=== PATIENT | female | born 1970 | race Caucasian/White ===

== ENCOUNTER → 2020-07-05 09:36 | Outpatient (CLI) | payer BC, SELFPAY ==
--- NOTE | ~2020-07-05 | MR_ITS ---
EXAMINATION: MR cervical spine wo con DATE: 07/05/2020 10:28 INDICATION: Neck pain. Anesthesia of skin. TECHNIQUE: Magnetic resonance imaging (MRI) of the cervical spine was performed without intravenous c ontrast. Sequences included sagittal T2-weighted FSE, sagittal STIR FSE, sagittal T1-weighted FSE, ax ial MERGE, and axial T2-weighted FSE. COMPARISON: None FINDINGS: Bone alignment is normal. Vertebral body heights are normal. There is mildly decreased disc height at C5-C6 and C6-C7. The spinal cord signal intensity is normal. The following disc levels are specifically discussed: C2-C3: The disc does not extend beyond the endplate margin. There is no uncovertebral joint osteoarth ritis. There is mild bilateral facet joint osteoarthritis. There is mild left neural foraminal stenos is. There is no central canal stenosis. C3-C4: The disc is bulging. There is moderate bilateral uncovertebral joint osteoarthritis. There is severe bilateral facet joint osteoarthritis. There is mild bilateral neural foraminal stenosis. There is no central canal stenosis. C4-C5: The disc does not extend beyond the endplate margin. There is mild bilateral uncovertebral marcin nt osteoarthritis. There is severe right and moderate left facet joint osteoarthritis. There is mild bilateral neural foraminal stenosis. There is no central canal stenosis. C5-C6: The disc is bulging. There is severe bilateral uncovertebral joint osteoarthritis. There is mo derate right and mild left facet joint osteoarthritis. There is moderate bilateral neural foraminal s tenosis. There is mild central canal stenosis with ventral indentation of the spinal cord. C6-C7: The disc is bulging. There is moderate bilateral uncovertebral joint osteoarthritis. There is mild bilateral facet joint osteoarthritis. There is mild bilateral neural foraminal stenosis. There i s mild central canal stenosis. C7-T1: The disc does not extend beyond the endplate margin. There is no uncovertebral joint osteoarth ritis. There is severe right and mild left facet joint osteoarthritis. There is mild bilateral neural foraminal stenosis. There is no central canal stenosis. IMPRESSION: 1. Moderate cervical spondylosis. Reviewed, dictated and finalized at location A.
== END ==
PROVIDERS: PCP Nurse Practitioner Family; Visit Provider Nurse Practitioner Family
DX: R20.0 Anesthesia of skin (principal); M47.892 Other spondylosis, cervical region
CPT/HCPCS: 72141

== ENCOUNTER → 2022-02-19 13:20 | Outpatient (CLI) | payer BC, SELFPAY ==
--- NOTE | ~2022-02-19 | MM_ITS ---
EXAMINATION: MM screening [facility] BI w cesar HISTORY: Screening mammogram TECHNIQUE: Craniocaudal and mediolateral oblique 3-D tomosynthesis images were obtained and synthetic 2-D images were generated. CAD analysis was submitted and interpreted. COMPARISON: No prior mammogram is available for comparison at this institution. BREAST PARENCHYMAL COMPOSITION: There are scattered areas of fibroglandular density. FINDINGS: RIGHT BREAST: There is a mass in the posterior third of the outer breast. LEFT BREAST: Masses are present in the middle and posterior thirds of the inner breast. IMPRESSION: 1. Bilateral breast masses which may represent the patient's baseline however no comparison is curren tly available. 2. Comparison with prior mammograms is necessary. BI-RADS Category 0: Incomplete: Needs comparison with prior mammograms. Reviewed, dictated and finalized at location A. IMPRESSION: 1. Bilateral breast masses which may represent the patient's baseline however n o comparison is currently available. 2. Comparison with prior mammograms is necessary. BI-RADS Category 0: Incomplete: Needs comparison with prior mammograms.
== END ==
PROVIDERS: PCP Nurse Practitioner Family; Visit Provider Nurse Practitioner Family
DX: Z12.31 Encounter for screening mammogram for malignant neoplasm of breast (principal); R92.8 Other abnormal and inconclusive findings on diagnostic imaging of breast
CPT/HCPCS: 77063; 77067

== ENCOUNTER → 2022-03-20 08:15 | Outpatient (CLI) | payer BC, SELFPAY ==
--- NOTE | ~2022-03-20 | MMUS_ITS ---
EXAMINATION: MM diagnostic cindi BI w cesar, US breast BI complete HISTORY: Follow-up breast asymmetries TECHNIQUE: Additional 3-D tomosynthesis images of the breasts were performed and synthetic 2-D images were generated. CAD analysis was submitted and interpreted. High resolution bilateral complete breas t ultrasound was performed. COMPARISON: Comparison to multiple prior studies sequentially, with oldest reviewed study dated 12/27. BREAST PARENCHYMAL COMPOSITION: Breast composed of scattered areas of fibroglandular density FINDINGS: MAMMOGRAPHIC FINDINGS: There are no suspicious masses, calcifications or architectural distortion in the right breast to sug gest malignancy. There is a focal mass at the 9:00 position of the left breast, middle third. ULTRASOUND: Complete bilateral US of all 4 quadrants of the breasts and retroareolar region was reviewed. Right breast: Normal heterogeneous echotexture without focal mass. Left breast: At 9:00, 3.5 cm from the nipple there is a 5 mm cyst. This corresponds to the mammograph ic finding. No suspicious masses. IMPRESSION: 1. No evidence for malignancy in either breast. 2. Routine yearly screening mammogram and regular clinical breast examination are recommended. BI-RADS Category 2: Benign finding(s). Reviewed, dictated and finalized at location A. IMPRESSION: 1. No evidence for malignancy in either breast. 2. Routine yearly screening mammogram and regular clinical breast examination a re recommended. BI-RADS Category 2: Benign finding(s).
== END ==
PROVIDERS: PCP Nurse Practitioner Family; Visit Provider Nurse Practitioner Family
DX: R92.8 Other abnormal and inconclusive findings on diagnostic imaging of breast (principal)
CPT/HCPCS: 76641; 77062; 77066; G0279

== ENCOUNTER → 2023-04-16 13:20 | Outpatient (CLI) | payer BC, SELFPAY ==
--- NOTE | ~2023-04-16 | MM_ITS ---
EXAMINATION: MM screening cindi BI w cesar HISTORY: Screening mammogram TECHNIQUE: Craniocaudal and mediolateral oblique 3-D tomosynthesis images were obtained and synthetic 2-D images were generated. CAD analysis was submitted and interpreted. COMPARISON: 03/20/2022 bilateral diagnostic mammography and bilateral complete breast ultrasound examin ation 02/19/2022, 12/27 2020 bilateral screening mammogram examinations BREAST PARENCHYMAL COMPOSITION: There are scattered areas of fibroglandular density. FINDINGS: There is no evidence of suspicious mass, calcification, or architectural distortion to sugg est malignancy in either breast. There has been no suspicious interval change. IMPRESSION: 1. No mammographic evidence of malignancy. 2. Recommend routine screening mammography in one year. BI-RADS Category 1: Negative Reviewed, dictated and finalized at location A.
== END ==
PROVIDERS: PCP Obstetrics & Gynecology; Visit Provider Obstetrics & Gynecology
DX: Z12.31 Encounter for screening mammogram for malignant neoplasm of breast (principal)
CPT/HCPCS: 77063; 77067

== ENCOUNTER 2024-03-28 15:45 | Emergency (ER) | payer OTHER, BC, SELFPAY ==
--- NOTE | ~2024-03-28 | CT_ITS ---
Noncontrast CT scan of the cervical spine Technique: Multiple contiguous axial [address] images of the cervical spine were obtained and rec onstructed in 2D sagittal and coronal planes on the acquisition scanner. Dose reduction technique was used on this scan by utilizing automated exposure control, adjustment of the mA and/or kV according to patient size. The dose-length product (DLP) was 586.28 mGy-cm. Clinical History: Pain Findings: No fractures or dislocations. There are mild degenerative disc changes in the cervical spi ne. There is scattered facet joint degenerative changes. There is left neural foraminal narrowing at C3-C4 related to facet joint arthropathy. There is probable bilateral mild neural foraminal narrowing at C5-C6. There is probable right neural foraminal narrowing at C6-C7. No prevertebral soft tissue s welling. Impression: No fracture or subluxation of the cervical spine. Degenerative change, as above. Reviewed, dictated and finalized at [facility]. Impression: No fracture or subluxation of the cervical spine. Degenerative change, as above.
--- NOTE | ~2024-03-28 | XR_ITS ---
Lumbosacral Spine: AP and lateral views Clinical History: Pain Findings: The normal lordotic curve is maintained. The vertebral bodies and posterior elements are i ntact. There is moderate degenerative disc narrowing at L5-S1. There is moderate facet arthropathy fr om L3 through S1. The sacroiliac joints are normally outlined. Impression: [id number] degenerative spondylosis of the lower lumbar spine, as above. Reviewed, dictated and finalized at location M. Impression: [id number] degenerative spondylosis of the lower lumbar spine, as above.
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
[2024-03-28 15:49] VITALS: BP 141/80; PULSE 106; RESP 20; TEMP 36.5; O2SAT 99
--- NOTE | 2024-03-28 17:04 | PC.NURSE ---
patient c/o left arm tingling. provider aware and new orders received
[2024-03-28] MEDS: ACETAMINOPHEN 500 MG TABLET 1000 MG PO (17:35)
--- NOTE | 2024-03-28 18:54 | PC.NURSE ---
c-collar removed at this time per ERP
[2024-03-28] MEDS: CYCLOBENZAPRINE HCL 10 MG TABLET PO (19:29)
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
[2024-03-28 22:07] VITALS: PULSE 72; RESP 17; O2SAT 95
== END 2024-03-28 22:10 | disposition home or self-care (01) ==
PROVIDERS: Emergency Provider Physician Assistant; PCP Obstetrics & Gynecology
DX: S39.012A Strain of muscle, fascia and tendon of lower back, initial encounter (principal); S20.211A Contusion of right front wall of thorax, initial encounter; F32.A Depression, unspecified; V43.52XA Car driver injured in collision with other type car in traffic accident, initial encounter
CPT/HCPCS: 71046; 71100; 72100; 72125; 99284; A9270

== ENCOUNTER 2024-09-01 10:09 | Outpatient (CLI) | payer BC, SELFPAY ==
--- NOTE | ~2024-09-01 | XR_ITS ---
[id number] Ordering provider: Gabrielle Chambers, BIOMETRIC FINGERPRINTING TECHNICIAN History: . CERVICALGIA . Comparison: None. FINDINGS: VERTEBRAL BODIES: Normal height and alignment. No visible fracture or subluxation. The dens is intact . DISK SPACES: Narrowing of the disc C5-C6. Multilevel uncovertebral joint osteoarthritic changes. PARASPINOUS SOFT TISSUES: No prevertebral soft tissue swelling. IMPRESSION: No acute osseous abnormality cervical spine. Degenerative disc disease at the level of C5-C6. Reviewed, dictated and finalized at location A. E MAKER
== END 2024-09-01 10:10 | disposition home or self-care (01) ==
LOC: MICIMG 10:10
PROVIDERS: PCP Obstetrics & Gynecology; Visit Provider Nurse Practitioner Family
DX: M50.322 Other cervical disc degeneration at C5-C6 level (principal)
CPT/HCPCS: 72040

== ENCOUNTER 2024-09-21 12:25 | Outpatient (CLI) | payer BC, SELFPAY ==
--- NOTE | ~2024-09-21 | MM_ITS ---
EXAMINATION: MM screening [facility] BI w cesar HISTORY: Screening TECHNIQUE: Craniocaudal and mediolateral oblique 3-D tomosynthesis images were obtained and synthetic 2-D images were generated. CAD analysis was submitted and interpreted. COMPARISON: Comparison to multiple prior studies sequentially, with oldest reviewed study dated 12/27. BREAST PARENCHYMAL COMPOSITION: Not dense: There are scattered areas of fibroglandular density. FINDINGS: Stable low-density mass in the lower inner quadrant of the left breast, previously characte rized as a cyst. There is no evidence of suspicious mass, calcification, or architectural distortion to suggest malignancy in either breast. There has been no suspicious interval change. IMPRESSION: 1. No mammographic evidence of malignancy. 2. Recommend routine screening mammography in one year. BI-RADS Category 2: Benign finding(s). Reviewed, dictated and finalized at location B. LINING BANDER
== END 2024-09-21 12:26 | disposition home or self-care (01) ==
PROVIDERS: PCP Obstetrics & Gynecology; Visit Provider Obstetrics & Gynecology
DX: Z12.31 Encounter for screening mammogram for malignant neoplasm of breast (principal)
CPT/HCPCS: 77063; 77067

== ENCOUNTER 2025-01-25 10:20 | Emergency (ER) | payer BC, SELFPAY ==
--- NOTE | 2025-01-25 10:22 | ED_ITS ---
HPI - Skin/Abscess/Foreign Bdy General Chief complaint: Skin/Abscess/Foreign Body Stated complaint: Rash On RT Leg Time Seen by Provider: 01/25/25 10:26 Source: patient, RN notes reviewed and old records reviewed Mode of arrival: ambulatory Limitations: no limitations History of Present Illness HPI narrative: 54-year-old female presents to [facility] with a rash to the Lateral mid right thigh. Patient starts that Friday night she started with some pain, little itchy. Rash has that developed. Denies any fevers. No flu-like symptoms. Onset (ago): day(s) (2) Treatments prior to arrival: none Related Data Allergies Allergy/AdvReac Type Severity Reaction Status Date / Time No Known Allergies Allergy Verified 01/25/25 10:29 Review of Systems Review of Systems: All systems reviewed & are unremarkable except as noted in HPI and below Constitutional: Constitutional: Reports no additional constitutional complaints ENT: Reports system reviewed and no additional complaints, except as documented Cardiovascular: Cardiovascular: Reports no additional cardiovascular complain ts, Denies chest pain and Denies dyspnea Respiratory: Respiratory: Reports no additional respiratory complaints, Denies chest congestion, Denies cough and Denies dyspnea Musculoskeletal: Musculoskeletal: Reports no additional musculoskeletal complaints Integumentary/Breasts: Skin/Breast: Reports as per HPI and Reports rash (right leg) [facility] Past Medical History Medical History Left arm pain Depression Surgical History Surgical History H/O LEEP History of colposcopy H/O hernia repair History of endometrial ablation Family History Family History Father Family history of lung cancer Brain cancer Grandparent Carcinoma of colon Mother Family history of cardiovascular disease Other Diabetes mellitus Social History Social History Smoking status: Never smoker Alcohol intake: current Alcohol use details: Socially Substance use: never Substance use type: does not use Do You Feel Safe in your Home?: Yes Current Housing: Decline to Answer Concerned About Future Housing: Decline to Answer Difficulty Paying Gas/Electric Bills: Decline to Answer Difficulty Paying for Meds: Decline to Answer Currently Unemployed: Decline to Answer Education: Decline to Answer Difficulty w/ Childcare or Family Care: Decline to Answer Living arrangements: with family Additional living arrangements comments: 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 There is no relevant family history pertinent to the patient complaint. Exam Const: General: cooperative, healthy appearing, comfortable, no acute distress, well developed, alert and well nourished Nutritional Appearance: well nourished Orientation/consciousness: patient oriented x3 Limitations: no limitations HENMT: Head: normal to inspection Eyes: General: appearance normal, both eyes and all related structures Alignment and Position: alignment normal Neck: Neck: normal visual inspection, full ROM, no lymphadenopathy and no meningeal signs Chest: Chest palpation & inspection: normal inspection of the chest Resp: Effort & Inspection: normal respiratory effort and able to speak in complete sentences Cardio: Rate: regular rate Skin: General skin exam: normal color and no rashes or lesions noted Rashes: rashes noted vesicles right lateral upper leg arrangement clustered; nontender Neuro: General: patient oriented x3, gait normal, moves all extremities and no meningeal signs Cognition (Neuro): normal cognition Speech: normal speech Gait exam (Neuro): Normal gait present Extrem: General: normal to inspection, full ROM, capillary refill normal and normal gait Psych: Appearance: grossly normal and well kempt Mental Status: mental status grossly normal Speech and movement: Normal speech and movement present and Clear speech present Affect: normal affect Attitude: cooperative Course Course Level of Care: Express Care Visit Vital Signs Vital signs: Vital Signs Temperature 97.1 F L 01/25/25 10:27 Pulse Rate 87 01/25/25 10:27 Respiratory Rate 16 01/25/25 10:27 Blood Pressure 148/87 H 01/25/25 10:27 Pulse Oximetry 100 01/25/25 10:27 Oxygen Delivery Room Air 01/25/25 10:27 Temperature 97.1 F L 01/25/25 10:27 Pulse Rate 87 01/25/25 10:27 Respiratory Rate 16 01/25/25 10:27 Blood Pressure 148/87 H 01/25/25 10:27 Pulse Oximetry 100 01/25/25 10:27 Oxygen Delivery Room Air 01/25/25 10:27 Reviewed MDM - Skin/Abscess/Foreign Bdy MDM Narrative Medical decision making narrative: Patient sitting in exam room. Nontoxic, vitals are stable except blood pressure mildly elevated patient presents for a rash for 2 days. Rash consistent with shingles. Patient has not received her shingles vaccine. Patient appropriate for outpatient treatment with close follow-up Discharge instructions reviewed with patient, as well as provided in writing per nursing staff. The instructions also include specific and strict return/GO TO THE ER as well as f/u information. All questions have been answered, and the patient deny any further questions with discharge and discharge plan. Some parts of this dictation were generated by voice recognition software and may contain typographical and/or grammatical inaccuracies. Differential Diagnosis Differential diagnosis: Likely abscess of skin or subcutaneous tissue, viral exanthem, urticaria, herpes zoster, cellulitis, eczema, insect bites, impetigo and contact dermatitis Critical Care Time Critical Care Time Critical Care Time: No Discharge Plan Discharge Clinical Impression: Shingles Patient Disposition: Home Condition: Stable Instructions: Shingles (ED) Additional Instructions: today your blood pressure was 148/87. Is recommended to follow-up with primary care provider to have this recheck you have been diagnosed with shingles. This is highly contagious virus please read handouts were given in regards to shingles follow-up with primary care provider for new or worsening symptoms please proceed to the nearest emergency room Patient Language: Yakut Prescriptions: New valacyclovir 1 gram tablet 1,000 mg PO TID 7 Days Qty: 21 0RF No Action fluoxetine 20 mg capsule 20 mg PO DAILY Qty: 90 3RF Follow-up/Referrals: Dejan,Rose Garza NP [Primary Care Provider] - 2 Weeks ([facility] care follow up Blood pressure check 148/87) Stand Alone Forms: Work/School Release IP Time of Disposition: 10:38
[2025-01-25 10:27] VITALS: BP 148/87; PULSE 87; RESP 16; TEMP 36.2; O2SAT 100
--- OUTSIDE RECORDS SUMMARY | 2025-01-25 10:35 | XMS_ITS | Clinical Summary ---
Author Organization [facility] Address [address] [place] [id number] Care Team Providers Care Crucible Furnace Tender Name Role Phone Unavailable Primary Care Provider Unavailabl e Social History Tobacco Use Types Packs/Day Years Used Date Smoking Tobacco: Never Assessed Comments Unknown Sex and Gender Information Value Date Recorded Sex Assigned at Not on file Legal Sex Female 11:16 PM PILLAR MAN Gender Identity Not on file Sexual Orientation Not on file Last Filed Vital Signs Vital Sign Reading Time Taken Comments Blood Pressure - - Pulse - - Temperature - - Respiratory Rate - - Oxygen Saturation - - Inhaled Oxygen Concentration - - Weight 81.6 kg (180 lb) 06/06/2014 8:52 AM CDT Height 162.6 cm (5' 4 ) 06/06/2014 8:52 AM CDT Body Mass Index 30.9 06/06/2014 8:52 AM CDT Plan of Treatment Health Maintenance Due Date Last Done Comments Cervical Cancer Screening Pa p Smear (Age 30 to 64) Every 3 Years 1970 Colorectal Cancer Screening Colonoscopy (10 Years) 1970 Annual Physical 1973 Hepatitis C 02/28/1988 DTaP, Tdap and Td Vaccines ( 1 - Tdap) 1989 Hepatitis B Vaccines (1 of 3 - 19+ 3-dose series) 1989 Cervical Cancer Screening Pa p with HPV Testing (Age 30 to 64) Every 5 Years 02/28/2000 Cervical Cancer Screening with HPV 02/28/2000 Mammogram Screening 2010 Pneumococcal Vaccine: 50+ Ye ars (1 of 1 - PCV) 02/28/2020 Zoster Vaccines (1 of 2) 02/28/2020 COVID-19 Vaccine ( - 2023-2 5 season) 2024 Meningococcal B Vaccine Aged Out No l onger eligible based on patient's age to complete this topic Meningococcal Vaccine Aged Out No floyd adalid eligible based on patient's age to complete this topic RSV Immunizations Under 20 Months Aged Out No longer eligible based on patient's age to complete this topic
--- OUTSIDE RECORDS SUMMARY | 2025-01-25 10:35 | XMS_ITS | Clinical Summary ---
Author Organization [facility] C Address [address] [place] [address] Care Team Providers Care Board Operator Name Role Phone Nader Guevara Beulah WILL Primary Care Provi jackie Allergies No known active allergies Medications FLUoxetine (PROzac) 20 mg capsule Take 20 mg by mouth daily 09/12/2020 Active Active Problems Problem Noted Date Diagnosed Date Mixed hyperlipidemia 10/08/2020 Mild episode of recurrent major depressive disor jackie 09/26/2020 Benign essential microscopic hematuria 1 Overview (09/26/2020): History of benign hematuria. Follows with urology yearly. Has had benign work up in the past. 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 Follows with urology yearly. Has had benign work up in the past. Family History Medical History Relation Name Comments Heart disease Father Heart disease Mother Breast cancer Neg Hx Endometrial cancer Neg Hx Ovarian cancer Neg Hx Thyroid cancer Neg Hx Relation Name Status Comments Father Mother Social History Tobacco Use Types Packs/Day Years Used Date Smoking Tobacco: Never Smokeless Tobacco: Never Alcohol Use Standard Drinks/Week Comments Yes 2 (1 standard drink = 0.6 oz pur e alcohol) PHQ-2 Answer Date Recorded PHQ-2 Total Score (If total score is 3 or more points, staff should administer the PHQ-9) 0 09/26/2020 Personal Safety Answer Date Recorded Getting School Help Needed Not on file 09/05 Comments No Sex and Gender Information Value Date Recorded Sex Assigned at Not on file Legal Sex Female 3:43 PM WAX BALL KNOCK OUT WORKER Gender Identity Female 09/25/2021 2:21 PM WAX BALL KNOCK OUT WORKER Sexual Orientation Straight 09/25/2021 2: 21 PM WAX BALL KNOCK OUT WORKER Obstetrics History Para Term AB IAB SAB Ectopic Multiple Livin g Live Births 2 2 2 Date Outcome GA Total Labor Labor/2nd/3rd Weight Sex Type Anes PTL Shawna A1 A5 Name Clin Term Term Last Filed Vital Signs Vital Sign Reading Time Taken Comments Blood Pressure 134/85 09/26/2020 8:25 AM WAX BALL KNOCK OUT WORKER Pulse 85 09/26/2020 8:25 AM WAX BALL KNOCK OUT WORKER Temperature 36.6 C (97.9 F) 09/26/2020 8:25 AM WAX BALL KNOCK OUT WORKER Respiratory Rate - - Oxygen Saturation 98% 09/26/2020 8:25 AM WAX BALL KNOCK OUT WORKER Inhaled Oxygen Concentration - - Weight 96.2 kg (212 lb) 09/26/2020 8:25 AM WAX BALL KNOCK OUT WORKER Height 162.6 cm (5' 4 ) 09/26/2020 8:25 AM WAX BALL KNOCK OUT WORKER Body Mass Index 36.39 09/26/2020 8:25 AM WAX BALL KNOCK OUT WORKER Plan of Treatment Health Maintenance Due Date Last Done Comments Cervical Cancer Screening 1970 Hepatitis C Screening 1970 DTaP/Tdap/Td Vaccine (1 - Tdap) 1981 Hepatitis B Screening 02/28/1988 Zoster Vaccine (1 of 2) 02/28/2020 Depression Screening 09/26/2021 09/26/2020 Regular Well Visit/Exam 18-64 09/26/2021 09/26/2020 Breast Cancer Screening-Mammogram 12/27/2021 021 Colon Cancer Screening-DNA Stool 10/03/2023 10/03/19 21 Covid-19 Vaccine (2 - 2023-2 5 season) 2024 11/21/2020 Influenza Vaccine (#1) 2024 Colon Cancer Screening-FIT Discontinued 10/03/2020 Pneumococcal vaccine <65 Aged Out No longer eligible based on patient's age to complete this topic Procedures Procedure Name Priority Date/Time Associated Diagnosis Comments SCREENING MAMMOGRAM BILATERAL W JOHN Schedule Routine, Read Routine (OP Routine) 12/27/2020 10:47 AM CDT Encounter for screening mammogram for malignant neoplasm of breast STOOL DNA COLOGUARD Routine 10/03/2020 7:30 AM WAX BALL KNOCK OUT WORKER Colon cancer screening from Last 3 Months or Most Recently Relevant to Health Maintenance Results * Screening Mammogram Bilateral W John (12/27/2020 10:47 AM CDT) Anatomical Region Laterality Modality Breast Bilateral Mammography 01/08/2021 2:47 PM CDT Impressions 01/08/2021 2:47 PM CDT BI-RADS Category 2, benign. Annual screening mammography. Electronically signed by: Piper Pink M.D. Narrative 01/08/2021 2:47 PM CDT Examination: Bilateral C -view 2D screening digital mammography with CAD and tomosynthesis Order Date: 12/27/2020 11:00 AM History: Routine screening Comparison:Outside 07/29/2019 through 04/18/2017 exam Findings: Craniocaudal and mediolateral oblique views of both breasts were obtained utilizing full field digital mammography. There are scattered areas of fibroglandular density. The parenchymal pattern is stable. There is no suspicious dominant mass, clustered microcalcification or architectural distortion. This examination has been subjected to R2/CAD analysis. Nader Guevara MAIL PROCESSING EQUIPMENT MECHANIC IM MAMMO PROCEDURE S Final Result * Stool DNA - Cologuard (10/03/2020 7:30 AM WAX BALL KNOCK OUT WORKER) Stool DNA - Cologuard Negative Not Applicable [employer] (CLIA #:[id number]) Comment: A negative result indicates a low likelihood that a colorectal cancer (CRC) or an advanced adenoma (adenomatous polyps with more advanced pre-malignant features) is present. The chance that a person with a negative Cologuard test has a colorectal cancer is less than 1 in 1500 (negative predictive value >99.9%) or has an advanced adenoma is less than 5.3% (negative predictive value 94.7%). These data are based on a prospective cross-sectional screening study of 10,000 individuals at average risk for colorectal cancer who were screened with both Cologuard and colonoscopy. (Priya Garcia al, N Engl J Med 2014;370(14):9878-4538) The normal value (reference range) for this assay is negative. COLOGUARD RE-SCREENING RECOMMENDATION: Periodic routine colorectal cancer screening is an important part of preventive healthcare for asymptomatic persons at average risk for colorectal cancer. Following a negative Cologuard result, the [place] Cancer Society and U.S. Multi-Society Task Force screening guidelines recommend a Cologuard re-screening interval of 3 years. References: [place] Cancer Society (ACS). Colorectal cancer prevention and early detection. [place], [place]: [place] Cancer Society; [updated 2015Jan 06]. https://www.cancer.org/cancer/acccw-vyvozn-kpplzf/ceaffpdmk-vhkefizlc-nkthuiu/ac s-rec ommendations.html. Accessed May 15, 2018; Walt DK, Susie CALERO, Janey MahmoodK, Colorectal Cancer Screening: Recommendations for Physicians and Patients from the U.S. Multi-Society Task Force on Colorectal Cancer Screening, Am J Gastroenterology 2017; 112:6883-6340. TEST TYPE: Composite algorithmic analysis of stool DNA-biomarkers with hemoglobin immunoassay. Quantitative values of individual biomarkers are not reportable and are not associated with individual biomarker result reference ranges. PRECAUTIONS AND LIMITATIONS: Cologuard is intended for colorectal cancer screening of adults of either sex, 45 years or older, who are at average-risk for colorectal cancer (CRC). Cologuard has been approved for use by the U.S. FDA. Cologuard may produce a false negative or false positive result. A negative Cologuard test result does not guarantee the absence of CRC or advanced adenoma (pre-cancer). Patients with a negative Cologuard test result should be advised to continue participating in a colorectal cancer screening program. The screening interval for Cologuard is currently recommended at an interval of every 3 years by the [place] Cancer Society and U.S. Multi-Society Task Force. A false positive result occurs when Cologuard produces a positive result, even though a colonoscopy may not find colorectal cancer or precancerous polyps. The performance of Cologuard has been established in a cross sectional study (i.e., single point in time) of average-risk adults aged 50-84. Cologuard performance in patients ages 45 to 49 years was estimated by sub-group analysis of near-age groups. Cologuard performance data in a 10,000 patient pivotal study using colonoscopy as the reference method can be accessed at the following location: [email or web address].[email or web address]/results. Additional description of the Cologuard test process, warnings and precautions can be found at www.cologuardtest.com. Rx only. Stool 10/03/2020 7:30 AM WAX BALL KNOCK OUT WORKER 10/04/2020 9:04 AM WAX BALL KNOCK OUT WORKER Nader Guevara MAIL PROCESSING EQUIPMENT MECHANIC LAB BODY FLUIDS AND STOOLS ORDERABLES Final Result [facility] (CLIA #:[id number]) [place] [place] [place] [address] from Last 3 Months or Most Recently Relevant to Health Maintenance Insurance [facility] ACCESS CHOICE ANTH ACCESS CHOICE Care Teams Board Operator Relationship Specialty Start Date End Date Nader Guevara NP PCP - General Family Practice 09/26/20
--- OUTSIDE RECORDS SUMMARY | 2025-01-25 10:35 | XMS_ITS | Referral Summary ---
Author Organization [facility] C Address [address] [place] [address] Care Team Providers Care Practice Specialist Name Role Phone Nader Guevara Beulah WILL [...] Due Influenza, Unspecified 09/26/2020(Deferred: Camille ent Refused) Social History Tobacco Use Types Packs/Day Years [...] on file Legal Sex Female 3:43 PM GRAPHIC ENGINEER Gender Identity Female 09/25/2021 2:21 PM GRAPHIC ENGINEER Sexual Orientation Straight 09/25/2021 2: 21 PM GRAPHIC ENGINEER Last Filed Vital Signs Vital Sign Reading Time Taken Comments Blood Pressure 134/85 09/26/2020 8:25 AM GRAPHIC ENGINEER Pulse 85 09/26/2020 8:25 AM GRAPHIC ENGINEER Temperature 36.6 C (97.9 F) 09/26/2020 8:25 AM GRAPHIC ENGINEER Respiratory Rate - - Oxygen Saturation 98% 09/26/2020 8:25 AM GRAPHIC ENGINEER Inhaled Oxygen Concentration - - Weight 96.2 kg (212 lb) 09/26/2020 8:25 AM GRAPHIC ENGINEER Height 162.6 cm (5' 4 ) 09/26/2020 8:25 AM GRAPHIC ENGINEER Body Mass Index 36.39 09/26/2020 8:25 AM GRAPHIC ENGINEER Plan of Treatment Not on file Procedures Procedure Name Priority Date/Time Associated Diagnosis Comments SCREENING MAMMOGRAM BILATERAL W JOHN Schedule Routine, Read Routine (OP Routine) 12/27/2020 10:47 AM CDT Encounter for screening mammogram for malignant neoplasm of breast STOOL DNA COLOGUARD Routine 10/03/2020 7:30 AM GRAPHIC ENGINEER Colon cancer screening from Last 3 Months [...] examination has been subjected to R2/CAD analysis. us Nader Guevaar PLATE STRAIGHTENER IMG MAMMO PROCEDURE S Final Result * Stool DNA - Cologuard (10/03/2020 7:30 AM GRAPHIC ENGINEER) Stool DNA - Cologuard Negative Not Applicable [employer] (CLIA #:[id number]) Comment: A negative result indicates a low [...] screened with both Cologuard and colonoscopy. (Priya Cisneros et al, N Engl J Med 2014;370(14):7641-8658) The normal value (reference range) for this assay is negative. COLOGUARD RE-SCREENING RECOMMENDATION: Periodic routine colorectal cancer screening is an important part of preventive healthcare for asymptomatic persons at average risk for colorectal cancer. Following a negative Cologuard result, the [place] Cancer Society and U.S. Multi-Society Task Force screening guidelines recommend a Cologuard re-screening interval of 3 years. References: [place] [employer] (ACS). Colorectal cancer prevention and early detection. [place], [place]: [place] [employer]; [updated 2015Jan 06]. https://www.cancer.org/cancer/muura-rwshqm-vplhqi/jupikjahf-wvzklmsdh-wdqkgfa/ac s-rec ommendations.html. Accessed May 15, 2018; Walt DK, Susie CR, Janey MahmoodK, Colorectal Cancer Screening: Recommendations for Physicians and Patients from the U.S. Multi-Society Task Force on Colorectal Cancer Screening, Am J Gastroenterology 2017; 112:7231-7717. TEST TYPE: Composite algorithmic analysis of stool [...] interval of every 3 years by the [place] [employer] Society and U.S. Multi-Society Task Force. [...] can be accessed at the following location: www.[employer]/results. Additional description of the Cologuard test process, warnings and precautions can be found at www.cologuardtest.com. Rx only. Stool 10/03/2020 7:30 AM GRAPHIC ENGINEER 10/04/2020 9:04 AM GRAPHIC ENGINEER Nader Guevara PLATE STRAIGHTENER LAB BODY FLUIDS AND STOOLS ORDERABLES Final Result [facility] (CLIA #:[id number]) [place] [address] [place] [address] from Last 3 Months or Most Recently Relevant to Health Maintenance Insurance [facility] ACCESS CHOICE ANTHEM ACCESS CHOICE Care Teams Practice Specialist Relationship Specialty Start Date End Date Nader Guevara NP PCP - General Family Practice 09/26/20
--- OUTSIDE RECORDS SUMMARY | 2025-01-25 10:35 | XMS_ITS | Data Portability ---
Author Organization [place] [facility] [employer], Main Office Address [address] [place] [address] Assessment Encounter Date Assessment Date Assessment LastModified by Organization Details LastModified Time 03/05/2023 03/05/2023 Cscope- Cologuard 11/2020- repeat 11/2023 Mammogram- 02/2022- is scheduled [facility]- Kenneth Call office if worse, ER if life threatening illness RTC 4 months She voices understanding of plan and agrees [email or web address] Not available 03/05/2023 12:43:01 07/09/2023 07/09/2023 Cscope- Cologuard 11/2020- repeat 11/2023 Mammogram- 02/2022- is scheduled [facility]- Kenneth Call office if worse, ER if life threatening illness RTC 4 months She voices understanding of plan and agrees [email or web address] Not available 07/09/2023 10:34:02 Plan of Treatment Reminders Order Date Submit Date Provider Last Modified By Organization Details Last Modified Time Details Appointments Any 15 2024 09:00A Melvi Wylie NP Not available Not available Not available Lab noninvasi ve colorecta l cancer DNA + occult blood screening , QL, stool 2023 024 [email or web address] (Cologuard Orders Only), [address], [address], [place], [address], 07/05/2024 18:07:16 hepatitis C virus Ab, serum 2023 024 [email or web address], [address], [place], [address], 10/05/2024 08:17:55 CBC w/ auto diff 2023 024 [email or web address] [facility], [address], [place], [address], 08/10/2024 15:45:39 CMP, serum or plasma 2023 024 [email or web address] [facility], [address], [place], [address], 08/10/2024 15:45:28 lipid panel, serum 2023 024 [email or web address] [facility], [address], [place], [address], 05/24/2024 09:43:56 TSH + free T4, serum 2023 024 [email or web address] [facility], [address], [place], [address], 08/10/2024 15:45:15 HbA1c (hemoglob in A1c), blood 2023 024 [email or web address] [facility], [address], [place], [address], 05/24/2024 09:43:56 HbA1c (hemoglob in A1c), blood 2022 023 [email or web address] [facility], [address], [place], [address], 04/02/2023 09:21:01 insulin, serum 2022 023 [email or web address] [facility], [address], [place], [address], 04/02/2023 09:21:02 CBC w/ auto diff 2022 023 [email or web address] [facility], [address], [place], [address], 04/02/2023 09:21:01 CMP, serum or plasma 2022 023 [email or web address] [address] [employer] [facility], [address], [place], [address], 04/02/2023 09:21:01 lipid panel, serum 2022 023 [email or web address] [address] [employer] [facility], [address], [place], [address], 04/02/2023 09:21:01 TSH + free T4, serum 2022 023 [email or web address] [employer] [facility], [address], [place], [address], 03/27/2023 01:27:15 Referral None recorded. Procedures None recorded. Surgeries None recorded. Imaging XR, cervical spine, 2 or 3 view 2023 [facility], [address], [facility] [address], [place], [address], 09/01/2024 11:54:50 MAMMO, screening , digital, bilateral - Please call patient to schedule. [address] [facility], [address], [place], [address], 11/15/2024 17:11:26 Medication Orders cyclobenz aprine 10 mg tablet 2023 024 [place] [facility], [address] [place], [place], [id number], 08/17/2024 11:49:48 Ozempic 1 mg/dose (4 mg/3 mL) subcutane ous pen injector 2023 024 [email or web address] [facility], [address] [facility] [address], [place], [phone], 01/23/2024 16:11:18 fluoxetin e 20 mg capsule 2023 024 [facility], [address] [facility], [place], [place], [phone], 11/19/2023 09:53:11 Ozempic 1 mg/dose (4 mg/3 mL) subcutane ous pen injector [address] [facility]17298, [address] [place], [place], [id number], 01/23/2024 16:11:18 Ozempic 1 mg/dose (4 mg/3 mL) subcutane ous pen injector [address] [facility]41046, [address] [place], [place], [id number], 01/23/2024 16:11:18 fluoxetin e 20 mg capsule 2022 023 [facility] #65732, [address] [place], [place], [id number], 03/05/2023 12:32:01 Patient TargetsNo targets recorded. Patient Instructions Encounter Date Encounter Id Patient Instructions Last Modified By Organization Details Last Modified Time 11/19/2023 [id number] Follow up in 6 months and as needed. Medications reordered Labs ordered Not available 11/19/2023 09:52:46 06/02/2024 [id number] Follow up in 6 months Obtain lab Tests: Complete cologuard Referral: Recommend: Influenza vaccine Tetanus vaccine Shingles vaccine Not available 06/02/2024 09:19:51 08/17/2024 [id number] Follow up in November Prescription sent to pharmacy Obtain labs Tests: Complete mammogram Referral: Recommend: Pneumococcal vaccine Tetanus vaccine Shingles vaccine Not available 08/17/2024 11:48:00 Reason for Referral None Reported. Results Created Date Observation Date Name Description Value Unit Range Abnormal Flag Note LastModifiedBy Organization Detail LastModifiedTime 06/29/20 24 06/29/2024 COLOG UARD cologuard result reportable NEGATI VE negati ve normal NEGAT CELESTINE TEST RESUL T. A negat celestine Colog uard resul t indic ates a low likel ihood that a color ectal cance r (CRC) or advan noelle adeno ma (roshan omato us polyp s with more advan noelle pre-m align ant featu res) is prese nt. The chanc e that a perso n with a negat celestine Colog uard test has a color ectal cance r is less than 1 in 1500 (nega tive predi ctive value >99.9 %) or has an advan noelle adeno ma is less than 5.3% (nega tive predi ctive value 94.7% ). These data are based on a prosp ectiv e cross -sect ional study of 0 indiv [place]ual s at [place] risk for color ectal cance r who were scree raven with both Colog uard and colon oscop y. (Micah Feliciano. et al, N Engl J Med 2014; 370(1 4):12 86-12 97) The debo l value (refe rence range ) for this assay is negat celestine. COLOG UARD RE-SC REENI NG RECOM MENDA TION: Perio dic color ectal cance r scree gilberto is an impor tant part of preve ntive healt hcare for asymp tomat ic indiv idual s at [place] risk for color ectal cance r. Follo wing a negat celestine Colog uard resul t, the Ameri can Cance r Socie ty and U.S. Multi -Soci ety Task Force scree gilberto guide lines recom mend a Colog uard re-sc reeni ng inter fausto of 3 years . Refer ences : Ameri can Cance r Socie ty Guide line for Color ectal Cance r Scree gilberto: https ://jordan w.can cer.o rg/ca ncer/ colon -rect al-ca ncer/ detec tion- diagn osis- stagi ng/ac s-rec ommen datio ns.ht ml.; Walt HERNANDEZ, Manolo CALERO, Javi MORAN, Color ectal Cance r Scree gilberto: Recom menda tions for Physi cians and Patie nts from the U.S. Multi -Soci ety Task Force on Color ectal Cance r Scree gilberto , Wil Krueger oente rolog y 2017; 112:1 016-1 030. TEST DESCR IPTIO N: [place] site algor ithmi c khushboo sis of stool DNA-b iomar kers with hemog lobin immun oassa y. Quant itati ve value s of indiv idual bioma rkers are not repor table and are not assoc iated with ind idual bioma rker resul t refer ence range s. Colog uard is inten ded for color ectal cance r scree gilberto of adult s of eithe r sex, 45 years or older , who are at [facility] for color ectal cance r (CRC) . Colog uard has been appro sakina for use by the U.S. FDA. The perfo rmanc e of Colog uard was estab lishe d in a cross secti onal study of [facility] adult s aged 50-84 . Colog uard perfo rmanc e in patie nts ages 45 to 49 years was estim ated by sub-g roup khushboo sis of near- age group s. Colon oscop ies perfo rmed for a posit celestine resul t may find as the most clini maude signi ficedgardo t lesio n: color ectal cance r [4.0% ], advan noelle adeno ma (incl uding sessi le rosenda donato polyp s great er than or equal to 1cm diame ter) [20%] or non- advan noelle adeno ma [31%] ; or no color ectal neopl abigail [45%] . These estim ates are deriv ed from a prosp ectiv e cross -sect ional scree gilberto study of 10,00 0 indiv idual s at [facility] risk for color ectal cance r who were scree raven with both Colog uard and colon oscop y. (Micah Cisneros et al, N Engl J Med 2014; 370(1 4):12 86-12 97.) Colog uard may produ ce a false negat celestine or false posit celestine resul t (no color ectal cance r or preca ncero us polyp prese nt at colon oscop y follo w up). A negat celestine Colog uard test resul t does not guara ntee the absen ce of CRC or advan noelle adeno ma (pre- cance r). The curre nt Colog uard scree gilberto inter fausto is every 3 years . (Amer ican Cance r Socie ty and U.S. Multi -Soci ety Task Force ). Colog uard perfo rmanc e data in a ,00 0 patie nt pivot al study using colon oscop y as the refer ence metho d can be acces sed at the follo wing locat ion: www.e xactl abs.c om/re karen . Addit ional descr iptio n of the Colog uard test proce ss, warni ngs and preca ution s can be found at www.c ologu ivette.c om. Not Available [facility] (Cologuard Orders Only) [address], [place], [address], 07/05/2024 18:07:16 09/01/20 24 09/01/2024 XR, cervi cristino spine , 2 or 3 view No observ ation record ed. [address] [facility] [address], [place], [address], 09/21/2024 15:23:13 12/07/19 25 11/30/2024 MRI, cervi cristino spine , w/o contr ast No observ ation record ed. [address] ([facility]) [address] [place], [address], 12/06/2024 11:28:26 Result Notes None recorded. Problems Name Problem SNOMED Code Status Onset Date Resolution Date Notes Provider Name and Address Organization Details Recorded Time Acute sinusitis 86695540 Active 2021 Not Available [facility] 3 00:29:22 Pain in throat 817597191 Active 2021 Not Available [facility] 3 00:29:22 Mammograph y abnormal 321570460 Active 2021 Not Available [facility] 3 00:29:22 Cough 10576880 Active 2021 Not Available [facility] 3 00:29:22 Upper respirator y infection 66007987 Active 2021 Not Available [facility] 3 00:29:23 Urinary tract infectious disease 15234642 Active 2021 Not Available [facility] 3 00:29:23 Prediabete s 124616472 Active 2022 Gabrielle Chambers APRN [address], [address], [place], [address] , [employer] 4 16:23:59 Anxiety 52168168 Active 2022 Gabrielle Chambers APRN [address], [address], [place], [address] , [employer] 4 09:49:23 Hyperlipid emia 85637055 Active 2022 Gabrielle Chambers APRN [address], [address], [place], [address] , [employer] 4 09:49:31 Insulin resistance 062856886 Active 2022 Gabrielle Chambers APRN [address], [address], [place], [address] , [employer] 4 16:22:46 Liver enzymes level above reference range 277189977 Active 2022 YAMILEX Berger [address], [address], [place], [address] , [employer] 3 10:28:44 Loss of hair 510669046 Active 2022 Mily Lewis, [facility] [address], [address], [place], [address] , [facility] 3 10:44:05 COVID-19 997614347 Active 2022 Judy almonte, [facility] 3 12:58:28 Pain in finger of right hand 5395352719322 09 Active 2023 Gabrielle Chambers APRN [address], [address], [place], [address] , [facility] 4 16:26:04 Obesity 171403378 Active 2023 Gabrielle Chambers APRN [address], [address], [place], [address] , [facility] 4 09:26:19 Neck pain 78178515 Active 2023 Gabrielle Chambers APRN [address], [address], [place], [address] , [facility] 4 11:40:26 Spinal stenosis 89024422 Active 2024 Gabrielle Chambers APRN [address], [address], [place], [address] , [facility] 5 10:21:02 Degenerati on of interverte bral disc 96846800 Active 2024 Gabrielle Chambers APRN [address], [address], [place], [address] , [facility] 5 10:21:25 Notes:abnormal pap smears. s hould get pap every 6 months Problem Notes None recorded. Procedures Surgical History Date Name Laterality Status Provider Name and Address Organization Details Recorded Time Hernia Repair completed Not Available [facility] 11/14/2022 00:27:27 endometrial ablation completed Tg Gamez MA [facility] 06/02/2024 09:07:38 Imaging Results Imaging Date Name Status LastModified by Organiz ation Details LastModified Time 09/01/2024 XR, cervical spine, 2 or 3 view completed [email or web address] [facility] [address], [place], [address], 09/21/2024 15:23:13 11/30/2024 MRI, cervical spine, w/o contrast completed [email or web address] [facility] ([facility]) [address], [place], [address], 12/06/2024 11:28:26 Procedure Notes None recorded. Medical Equipment None Reported. Allergies No known drug allergies Medications Name Sig Start Date Stop Date Status Note LastModified by Organization Details LastModified Time cyclobenzap rine 10 mg tablet TAKE 1 TABLET BY MOUTH EVERY 8 HOURS NEEDED. CUT IN HALF IF TOO SEDATING. 2023 active Not Available Not Available Not Avai lable Lidocaine Viscous 2 % mucosal solution GARGLE AND SPIT 15 ML BY MOUTH EVERY 3 TO 4 HOURS NEEDED active Not Available Not Available No t Available benzonatate 200 mg capsule TAKE 1 CAPSULE BY MOUTH THREE TIMES DAILY active Not Available Not Available No t Available valacyclovi r 1 gram tablet 08/17 completed Not Available Not Available Not Available penicillin V potassium 500 mg tablet TAKE 1 TABLET BY MOUTH TWICE DAILY DIRECTED COMPLETE ENTIRE BOTTLE EVEN IF FEELING BETTER active Not Available Not Available No t Available phentermine 37.5 mg tablet TAKE 1 TABLET BY MOUTH EVERY DAY IN THE MORNING active Not Available Not Available No t Available ciprofloxac in 500 mg tablet Take 1 tablet every 12 hours by oral route for 7 days. active Not Available Not Available No t Available amoxicillin 875 mg tablet Take 1 tablet every 12 hours by oral route for 7 days. 02/20 completed Not Available Not Available Not Available oseltamivir 75 mg capsule TAKE 1 CAPSULE BY MOUTH TWICE DAILY active Not Available Not Available No t Available lidocaine 5 % topical patch APPLY 1 PATCH TO SKIN EVERY DAY. LEAVE ON MOST PAINFUL AREA FOR UP TO 12 HOURS. DO NOT USE MORE THAN 1 PATCH IN 24 HOURS 06/02 completed Not Available Not Available Not Available methylpredn isolone 4 mg tablets in a dose pack TAKE PER PACKAGE DIRECTION S. TAKE WITH FOOD 10/15 completed Not Available Not Available Not Available albuterol sulfate HFA 90 mcg/actuati on aerosol inhaler INHALE 2 PUFFS BY MOUTH EVERY 4 HOURS UNTIL DIRECTED TO STOP 03/05 completed Not Available Not Available Not Available ondansetron 4 mg disintegrat ing tablet Place 1 tablet every 6-8 hours by oral route. 06/02 completed Not Available Not Available Not Available fluoxetine 20 mg capsule TAKE 1 CAPSULE BY MOUTH DAILY active Not Available Not Available No t Available phentermine 37.5 mg capsule TAKE 1 CAPSULE BY MOUTH DAILY 07/09 completed Not Available Not Available Not Available amoxicillin 875 mg-potassiu m clavulanate 125 mg tablet Take 1 tablet every 12 hours by oral route for 7 days. active Not Available Not Available No t Available clindamycin 1 % lotion 03/05 completed Not Available Not Available Not Available nitrofurant oin monohydrate /macrocryst als 100 mg capsule Take 1 capsule every 12 hours by oral route for 5 days. 09/11 completed Not Available Not Available Not Available bimatoprost 0.03 % drops with applicator, eyelash base 06/02 completed Not Available Not Available Not Available Ozempic 0.25 mg or 0.5 mg (2 mg/1.5 mL) subcutaneou s pen injector 01/22 completed Not Available Not Available Not Available ID NOW COVID-19 Test Kit TEST DIRECTED TODAY 02/20 completed Not Available Not Available Not Available Ozempic 1 mg/dose (4 mg/3 mL) subcutaneou s pen injector Inject 1 mg every week by subcutane ous route. 01/22 completed Not Available Not Available Not Available Paxlovid 300 mg (150 mg x 2)-100 mg tablets in a dose pack Take 1 dose pk by oral route as directed. 11/18 completed Not Available Not Available Not Available Ozempic 2 mg/dose (8 mg/3 mL) subcutaneou s pen injector INJECT 2MG SUBCUTANE OUSLY ONCE WEEKLY 11/18 completed Not Available Not Available Not Available Mounjaro 7.5 mg/0.5 mL subcutaneou s pen injector Inject 7.5 mg every week by subcutane ous route. 09/11 completed Not Available Not Available Not Available Mounjaro 5 mg/0.5 mL subcutaneou s pen injector INJECT 5 MG SUBCUTANE OUSLY WEEKLY 07/17 completed Not Available Not Available Not Available Mounjaro 10 mg/0.5 mL subcutaneou s pen injector INJECT 10MG UNDER THE SKIN EVERY WEEK 11/20 completed Not Available Not Available Not Available Zepbound 10 mg/0.5 mL subcutaneou s pen injector Inject 0.5 mL every week by subcutane ous route as directed, for weight loss. 2024 active Not Available Not Available Not Avai lable Zepbound 5 mg/0.5 mL subcutaneou s pen injector Inject 0.5 mL every week by subcutane ous route as directed. 03/31 completed Not Available Not Available Not Available Zepbound 2.5 mg/0.5 mL subcutaneou s pen injector INJECT 0.5 ML SUBCUTANE OUSLY WEEKLY DIRECTED 02/10 completed Not Available Not Available Not Available Zepbound 12.5 mg/0.5 mL subcutaneou s pen injector Inject 0.5 mL every week by subcutane ous route as directed. active Not Available Not Available No t Available Zepbound 7.5 mg/0.5 mL subcutaneou s pen injector Inject by subcutane ous route for 28 days. 06/02 completed Not Available Not Available Not Available Vitals Date Recorded Body height Body mass index (BMI) Body weight Body temperature Heart rate Oxygen saturation Oxygen saturation in Arterial blood by Pulse oximetry Systolic blood pressure Diastolic blood pressure Provider Name and Address Organization Details Last Updated DateTime 3 162.56 cm 28 kg/m2 41765.5 6 g 97.3 [degF] 76 /min 98 % 98 % 128 mm[Hg] 80 mm[Hg] Bernie Cedeño [place] [facility] 3 12:17:02 Date Recorded Body height Body mass index (BMI) Body weight Body temperature Heart rate Oxygen saturation Oxygen saturation in Arterial blood by Pulse oximetry Systolic blood pressure Diastolic blood pressure Provider Name and Address Organization Details Last Updated DateTime 3 162.56 cm 27.1 kg/m2 49701.5 9 g 97.4 [degF] 80 /min 98 % 98 % 118 mm[Hg] 76 mm[Hg] Marilin Devi MA [facility] [employer] [facility] 3 10:30:05 Date Recorded Body height Body mass index (BMI) Body weight Body temperature Heart rate Oxygen saturation Oxygen saturation in Arterial blood by Pulse oximetry Systolic blood pressure Diastolic blood pressure Provider Name and Address Organization Details Last Updated DateTime 4 162.56 cm 27.5 kg/m2 89228.7 8 g 97.4 [degF] 96 /min 88 % 88 % 118 mm[Hg] 70 mm[Hg] Yelena Alberts CMA [facility] [employer] [facility] 4 09:37:04 Date Recorded Body height Body mass index (BMI) Body weight Body temperature Heart rate Oxygen saturation Oxygen saturation in Arterial blood by Pulse oximetry Pain severity - 0-10 verbal numeric rating [Score] - Reported Systolic blood pressure Diastolic blood pressure Provider Name and Address Organization Details Last Updated DateTime 4 162.56 cm 27.3 kg/m2 59066.1 9 g 96.2 [degF] 79 /min 98 % 98 % 0 112 mm[Hg] 70 mm[Hg] Tg Gamez MA [facility] [employer] [facility] 4 09:05:28 Date Recorded Body height Body mass index (BMI) Body weight Body temperature Heart rate Oxygen saturation Oxygen saturation in Arterial blood by Pulse oximetry Pain severity - 0-10 verbal numeric rating [Score] - Reported Systolic blood pressure Diastolic blood pressure Provider Name and Address Organization Details Last Updated DateTime 4 162.56 cm 28 kg/m2 06113.5 6 g 97.4 [degF] 80 /min 98 % 98 % 4 108 mm[Hg] 68 mm[Hg] Tg Gamez MA [facility] [employer] [facility] 4 11:29:39 Social History Question Answer Notes LastModified by Organizat ion Details LastModified Time Tobacco Smoking Status Never Smoker ADAMA Sun, [facility] [employer] [facility] 03/05/2023 12:15:41 Do You Wear A Helmet When Biking? Yes Information not available 11/20/2022 What Is Your Level Of Caffeine Consumption? Heavy [id number] Information not available 11/14/2022 In The 14 Days Before Symptom Onset, Have You Had Close Contact With A Laboratory-confi rmed COVID-19 While That Case Was Ill? No Had Covid 09/29/21 Information not available 11/20/2022 In The 14 Days Before Symptom Onset, Have You Had Close Contact With A Person Who Is Under Investigation For COVID-19 While That Person Was Ill? No Information not available 11/20/2022 What Type Of Diet Are You Following? REGULAR [id number] Information not available 11/14/2022 What Is The Highest Grade Or Level Of School You Have Completed Or The Highest Degree You Have Received? [id number] Information not available 11/20/2022 Have There Been Any Changes To Your Family Or Social Situation? No Information not available 11/20/2022 What Is The Fluoride Status Of Your Home? Unknown Information not available 11/20/2022 Are There Any Guns Present In Your Home? Yes Information not available 11/20/2022 Do You Use Insect Repellent Routinely? No Information not available 11/20/2022 Where Do You Live? SingleLevelHouse Information not available 11/20/2022 What Was The Date Of Your Most Recent Tobacco Screening? 08/17/2024 Information not available 08/17/2024 How Many Children Do You Have? 2 Information not available 06/02/2024 Do You Have Any Pets? Yes Information not available 11/20/2022 What Is Your Relationship Status? [id number] Information not available 11/14/2022 Do You Use Your Seat Belt Or Car Seat Routinely? Yes Information not available 11/20/2022 Do You Have Smoke And Carbon Monoxide Detectors In Your Home? Yes Information not available 11/20/2022 Are You Passively Exposed To Smoke? No Information not available 11/20/2022 Are There Any Smokers In Your House? No Information not available 11/20/2022 Do You Use Sunscreen Routinely? Yes Information not available 11/20/2022 Have You Recently Traveled Abroad? No Information not available 11/20/2022 Do You Have Any Dietary Restrictions? No Information not available 11/20/2022 Sex: Female Functional Status Question Answer Note LastModified by Organizat ion Details LastModified Time Do you use any illicit or recreational drugs? No Information not available 11/20/2022 What is your level of alcohol consumption? Moderate [id number] Information not available 11/14/2022 Are you currently employed? 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 Occasional [id number] Information not available 11/14/2022 Mental Status Question Answer Note LastModified by Organization D etails LastModified Time Do you feel stressed (tense, restless, nervous, or anxious, or unable to sleep at night)? [id number] [facility] Information not available 11/20/2022 Family History Relationship Description Onset Age of this Age Resolved Age Notes LastModified by Organization Details LastModified Time Father Neoplasm of brain [id number] Not available 11/14/2022 00:27:29 Mother Atrial fibrillation [id number] Not available 11/14/2022 00:27:29 Paternal Grandfather Malignant tumor of colon MIGRATION.[id number] Not available 11/14/2022 00:27:29 Medical History Condition Response NERVE DISEASE N BLINDNESS N RHEUMATIC FEVER N KIDNEY STONES N BLADDER PROBLEMS N MRSA N OTHER # 1 N POLIO N LUNG DISEASE/DISORDER N HISTORY OF DRUG ABUSE N RADIATION / CHEMOTHERAPY N COPD N Other # 2 N BLOOD DISEASES N EAR OR HEARING PROBLEMS N MUMPS N SHINGLES N DEPRESSION (INCLUDING POST ) N BOWEL PROBLEMS N STROKE/TIA N ULCERS N BENIGN PROSTATIC HYPERPLASIA N MEASLES N HYPOTENSION N MYOCARDIAL INFARCTION N OBESITY N GERD/NAUSEA N ANEURYSM N URINARY/BLADDER/KIDNEY PROBLEMS N CORONARY ARTERY DISEASE (CAD) N ADDICTION CONCERNS N Impotence N ENDOMETRIOSIS N USE OF BLOOD THINNERS N SKIN PROBLEMS N GASTROINTESTINAL DISORDER N PERIPHERAL VASCULAR DISEASE N MUSCLE,JOINT OR BONE PROBLEMS N GASTROINTESTINAL BLEEDING N BLOOD CLOTS N ASTHMA N CATARACTS N ERECTILE DYSFUNCTION N VARICOSITIES N GI PROBLEMS N Low Testosterone N INFERTILITY N AIDS/HIV N CHEMOTHERAPY / RADIATION N LIVER DISEASE N MALE HYPOGONADISM N HYPERTENSION N Deficiency N TOURETTE'S N ANXIETY DISORDER N BLOOD TRANSFUSION N ANEMIA/BLOOD DISORDER N CHRONIC EAR INFECTIONS N BRONCHITIS N TUBERCULOSIS N GLAUCOMA N FOOT PROBLEM N DIVERTICULITIS N SLEEP APNEA N CHICKENPOX N INFECTIOUS DISEASE N PROSTATE N HEART ARRHYTHMIA N INSOMNIA N HIGH CHOLESTEROL / HYPERLIPIDEMIA N HYPERTHYROIDISM N EYE PROBLEMS N EDEMA N CHRONIC PAIN SYNDROME N HYPOTHYROIDISM N CONSTIPATION N CAROTID BLOCKAGE N BACK / NECK PROBLEMS N HAVE YOU BEEN HOSPITALIZED OR SEEN IN THE MEDICAL CENTER IN THE PAST YEAR ? N ATHEROSCLEROSIS N BREAST PROBLEMS N DIALYSIS N ECZEMA N OSTEOPOROSIS N ARTHRITIS N NO SIGNIFICANT PAST MEDICAL HISTORY N APPENDICITIS N DIABETES, TYPE N BAD TEETH N ENT N HEARTBURN / REFLUX N AUTISM SPECTRUM DISORDER (ASD) N HEPATITIS / LIVER DISEASE N GOUT N SLEEP DISORDER N ALZHEIMER'S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
--- OUTSIDE RECORDS SUMMARY | 2025-01-25 10:37 | XMS_ITS | Data Portability ---
Author Organization [facility] Address [address], [address] [place] [address] Care Team Providers Care Veneer Taper Name Role Phone OTILIA PEACOCKIE Primary Care Provider [phone] Assessment Encounter Date Assessment Date Assessment LastModified by Organization Details LastModified Time 11/02/2019 11/02/2019 Seborrheic keratoses - diagnosis reviewed. Pt reassured. benign nevi-not suspicious discussed congenital nevus R upper back-not suspicious rec monitor for changes postinflammatory macules with resolving folliculitis chin secondary to plucking rec hold plucking as will trigger flares rec electric shave or electrolysis for treatment of hairs if desired rec clindamycin lotion BID with flares fibrous papule, R nasal ala not suspicious no rx Lentigines - diagnosis reviewed. Avoid sun exposure and use sun protection. subcutaneous nodule, R infraauricular agree with f/u and monitoring as planned with ENT fbse 1 yr sunscreen handout reviewed and given Not available 11/02/2019 12:32:44 11/06/2021 11/06/2021 Benign nevi-discussed not suspicious Acrochordons, neck Discussed diagnosis Discussed options no treatment vs rtc for cosmetic snip removal Seborrheic keratoses - diagnosis reviewed. Pt reassured. Discussed no treatment needed. Angioma - diagnosis reviewed. Patient reassured. Discussed no treatment needed. fbse 1 yr Photoprotection discussed. Use of a broad-spectrum sunscreen SPF 30 or higher recommended. Not available 11/11/2021 16:36:36 12/22/2023 12/22/2023 Benign nevi-discussed not suspicious Recommend monitor for changes. Dermatofibroma R upper arm- diagnosis reviewed. Pt reassured. Discussed no treatment needed. fbse 1 yr Photoprotection discussed. Use of a broad-spectrum sunscreen SPF 30 or higher recommended. Not available 12/22/2023 15:44:55 Plan of Treatment Reminders Order Date Submit Date Provider Last Modified By Organization Details Last Modified Time Details Appointments None recorded. Lab None recorded. Referral None recorded. Procedures None recorded. Surgeries None recorded. Imaging None recorded. Medication Orders clindamycin 1 % lotion 2019 020 [email or web address] [id number], [address] [facility], [place], [place], [phone], 14:27:25 Patient TargetsNo targets recorded. Patient Instructions Encounter Date Encounter Id Patient Instructions Last Modified By Organization Details Last Modified Time 11/02/2019 [id number] sun protection Not available 11/02/2019 23:40:11 Reason for Referral None Reported. Problems No Known Problems Medical Equipment None Reported. Allergies No known drug allergies Medications Name Sig Start Date Stop Date Status Note LastModified by Organization Details LastModified Time cyclobenzap rine 10 mg tablet TAKE 1 TABLET BY MOUTH EVERY 8 HOURS NEEDED. CUT IN HALF IF TOO SEDATING. active Not Available Not Available No t Available benzonatate 200 mg capsule TAKE 1 CAPSULE BY MOUTH THREE TIMES DAILY UNTIL DIRECTED TO STOP 11/06 completed Not Available Not Available Not Available valacyclovi r 1 gram tablet TAKE 1 TABLET BY MOUTH TWICE DAILY FOR 7 DAYS NEEDED FOR OUTBREAKS active Not Available Not Available No t Available phentermine 37.5 mg tablet TAKE 1 TABLET BY MOUTH EVERY DAY IN THE MORNING active Not Available Not Available No t Available ciprofloxac in 500 mg tablet TAKE 1 TABLET BY MOUTH EVERY 12 HOURS FOR 7 DAYS active Not Available Not Available No t Available tramadol 50 mg tablet 11/02 completed Not Available Not Available Not Available amoxicillin 875 mg tablet TAKE 1 TABLET BY MOUTH EVERY 12 HOURS FOR 10 DAYS OR UNTIL DIRECTED TO STOP 11/06 completed Not Available Not Available Not Available cephalexin 500 mg capsule 11/02 completed Not Available Not Available Not Available fluoxetine 20 mg tablet 11/06 completed Not Available Not Available Not Available methylpredn isolone 4 mg tablets in a dose pack TAKE PER PACKAGE DIRECTION S. TAKE WITH FOOD active Not Available Not Available No t Available albuterol sulfate HFA 90 mcg/actuati on aerosol inhaler INHALE 2 PUFFS BY MOUTH EVERY 4 HOURS UNTIL DIRECTED TO STOP active Not Available Not Available No t Available ondansetron 4 mg disintegrat ing tablet DISSOLVE 1 TABLET ON THE TONGUE EVERY 6 TO 8 HOURS NEEDED active Not Available Not Available No t Available fluoxetine 20 mg capsule TAKE 1 CAPSULE BY MOUTH DAILY active Not Available Not Available No t Available phentermine 37.5 mg capsule TAKE 1 CAPSULE BY MOUTH DAILY active Not Available Not Available No t Available amoxicillin 875 mg-potassiu m clavulanate 125 mg tablet TAKE 1 TABLET BY MOUTH EVERY 12 HOURS FOR 7 DAYS active Not Available Not Available No t Available clindamycin 1 % lotion APPLY A THIN LAYER TO THE AFFECTED AREA TWICE DAILY WITH FLARES ON THE CHIN active Not Available Not Available No t Available nitrofurant oin monohydrate /macrocryst als 100 mg capsule TAKE 1 CAPSULE BY MOUTH EVERY 12 HOURS FOR 5 DAYS active Not Available Not Available No t Available Flovent Diskus 100 mcg/actuati on powder for inhalation 11/02 completed Not Available Not Available Not Available bimatoprost 0.03 % drops with applicator, eyelash base APPLY SCANT AMOUNT TO EYE LASH AT BEDTIME active Not Available Not Available No t Available Ozempic 0.25 mg or 0.5 mg (2 mg/1.5 mL) subcutaneou s pen injector INJECT 0.5 MG UNDER THE SKIN EVERY WEEK active Not Available Not Available No t Available ID NOW COVID-19 Test Kit TEST DIRECTED TODAY active Not Available Not Available No t Available Ozempic 1 mg/dose (4 mg/3 mL) subcutaneou s pen injector INJECT 1MG UNDER THE SKIN ONCE A WEEK active Not Available Not Available No t Available Ozempic 2 mg/dose (8 mg/3 mL) subcutaneou s pen injector INJECT 2MG SUBCUTANE OUSLY ONCE WEEKLY active Not Available Not Available No t Available Mounjaro 7.5 mg/0.5 mL subcutaneou s pen injector active Not Available Not Available Not Available Mounjaro 5 mg/0.5 mL subcutaneou s pen injector INJECT 5 MG SUBCUTANE OUSLY WEEKLY active Not Available Not Available No t Available Mounjaro 10 mg/0.5 mL subcutaneou s pen injector INJECT 10MG UNDER THE SKIN EVERY WEEK active Not Available Not Available No t Available Vitals None Recorded Social History Question Answer Notes LastModified by Organizat ion Details LastModified Time Tobacco Smoking Status Never Smoker [place] - Adrienne Flores MD 11/02/2019 11:59:27 In The 14 Days Before Symptom Onset, Have You Had Close Contact With A Laboratory-confirm ed COVID-19 While That Case Was Ill? No [email or web address] Information n ot available 11/06/2021 In The 14 Days Before Symptom Onset, Have You Had Close Contact With A Person Who Is Under Investigation For COVID-19 While That Person Was Ill? No [email or web address] Information not available 11/06/2021 What Was The Date Of Your Most Recent Tobacco Screening? 11/06/2021 [email or web address] Information not available 11/06/2021 Sun Exposure Moderate [email or web address] Information not available 11/02/2019 Do You Use Sunscreen Routinely? Yes [email or web address] Information not available 11/02/2019 Tanning Bed Exposure Yes [email or web address] Information not available 11/02/2019 Sex: Unknown Functional Status Question Answer Note LastModified by Organization D etails LastModified Time What is your level of alcohol consumption? Moderate [email or web address] Information not available 11/02/2019 Mental Status None recorded. Family History Relationship Description Onset Age of this Age Resolved Age Notes LastModified by Organization Details LastModified Time Father Malignant neoplasm of brain [email or web address] Not available 10/16 11:59:20 Medical History Condition Response Diabetes N Bleeding Disorder N Arthritis N Hyperthyroidism N Defibrillator N Cancer N Stroke N Hypothyroidism N Asthma N Lupus N HIV/AIDS N Pacemaker N Anemia N Psoriasis N Hepatitis N Heart Disease N Hypertension N Gynecological HistoryNo gynecological history recorded. Obstetrics History GPAL:G 0 P 0 0 0 0 Past Encounters Encounter ID Performer Location Encounter Start Date Encounter Closed Date Diagnosis/Indication Diagnosis SNOMED-CT Code Diagnosis ICD10 Code Diagnosis Note [id number] Adrienne Flores MD Main Office [address] [address] 11/02/2019 11:41:25 11/02/2019 12:45:47 Senile hyperkeratosis 588859357 L82.1 Melanocyti c nevus of trunk 726774314 D22.5 Folliculitis 72173417 L7 3.8 Lentigo 932999580 L81.4 [id number] Adrienne Flores MD Main Office [address] [facility] [address] [place] [address] 11/06/2021 10:35:18 11/06/2021 11:16:39 Melanocytic nevus of trunk 876954428 D22.5 Senile hyperkeratosis 39 6040295 L82.1 Hemangioma of skin 87870 006 D18.01 Melanocyti c nevus of skin of thigh 031998759 D22.72 [id number] Adrienne Flores MD Main Office [address] [facility] [address] [place] [address] 12/22/2023 15:01:59 12/22/2023 15:47:30 Melanocytic nevus of trunk 633388456 D22.5 Benign olivia plasm of skin of upper limb 64810973 D23.61 Health Concerns Section Related Observation LastModified by Organization Detai ls LastModified Time None Recorded Concern Status LastModified by Organization Details LastModified Time None Recorded Advance Directives Directive None Recorded Payers Encounter Date Sequence Insurance Name Policy Number Policy Abreu Covered Member ID Abreu Member ID Guarantor Name 11/02/2019 1 [place] [id number] 2 Pranav Ita [id number] Itzel Ita 11/06/2021 1 [place] [id number] 2 Pranav Ita [id number] Itzel Ita 12/22/2023 1 [place] [id number] 2 Pranav Ita [id number] Itzel Garciales Notes Date Note Type Note Provider Name and Address Organization Details Recorded Time 11/02/2019 text/html full body checkn o concerns dark spots on the legsx yrsno bleeding or itchyno past treatment larger spot on the backOB takes photos and no changesno itching or bleedinghas been there since young lump under the R earshe notes it was removed partially with ENT and was a benign cystshe notes they are not completely removing as woven into the nervesthey are monitoring with imaging and she gets followed yearly with them on questioning, breaking out on the chin after plucks white fine hairsno hx dark hairs or increased hair growth on the chinno current treatment no other bleeding spots, changing moles, or sores that don't want to heal.no hx skin cancerno hx moles removed in the past Patient's completed past medical history form was reviewed.no f/c Adrienne Flores MD [address] [place] [address], [address], [place], [address], [place] [facility] MD 11/02/2019 23:40:21 11/06/2021 text/html COVID-19 protoco l. Patient and any caregivers present screened to confirm no fever, cough, loss of taste or smell, or shortness of breath. Patient and any caregivers deny current diagnosis or pending testing of COVID-19 or recent exposure to any individual with known or current testing for COVID-19. Patient and caregivers masked while in office. full body checkno concerns small skin tags along the neck30 lb weight gain with pandemicwondering treatment options no known changes to birthmark on the R upper backpresent since she was young no other bleeding spots, changing moles, or sores that don't want to heal. Adrienne Flores MD [address] [place] [address], [address], [place], [address], [place] [facility] MD 11/11/2021 16:36:59 12/22/2023 text/html Full body skin c heck no concerns no changes to the mole on the upper back no other bleeding spots, changing moles, or sores that don't want to heal. Adrienne Flores MD [address] [place] [address], [address], [place], [address], [place] [facility] MD 12/28/2023 22:26:30 OBGyn Episode No OBEpisode recorded.
== END 2025-01-25 10:48 | disposition home or self-care (01) ==
PROVIDERS: Emergency Provider Nurse Practitioner; PCP Nurse Practitioner Family
DX: B02.9 Zoster without complications (principal); F32.A Depression, unspecified
CPT/HCPCS: 99213; G0463

== ENCOUNTER 2025-05-12 13:26 | Emergency (ER) | payer BC, SELFPAY ==
--- OUTSIDE RECORDS SUMMARY | 2025-05-12 13:29 | XMS_ITS | Clinical Summary ---
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
--- OUTSIDE RECORDS SUMMARY | 2025-05-12 13:29 | XMS_ITS | Clinical Summary ---
Author Organization [facility] Address [address] [place] [address] Care Team Providers Care Global Recruiter Name Role Phone Nader Guevara Beulah WILL [...] on file Legal Sex Female 3:43 PM CONVEYOR TECHNICIAN Gender Identity Female 09/25/2021 2:21 PM CONVEYOR TECHNICIAN Sexual Orientation Straight 09/25/2021 2: 21 PM CONVEYOR TECHNICIAN Obstetrics History Para Term AB IAB SAB Ectopic Multiple Livin g Live Births 2 2 2 Date Outcome GA Total Labor Labor/2nd/3rd Weight Sex Type Anes PTL Shawna A1 A5 Name Clin Term Term Last Filed Vital Signs Vital Sign Reading Time Taken Comments Blood Pressure 134/85 09/26/2020 8:25 AM CONVEYOR TECHNICIAN Pulse 85 09/26/2020 8:25 AM CONVEYOR TECHNICIAN Temperature 36.6 C (97.9 F) 09/26/2020 8:25 AM CONVEYOR TECHNICIAN Respiratory Rate - - Oxygen Saturation 98% 09/26/2020 8:25 AM CONVEYOR TECHNICIAN Inhaled Oxygen Concentration - - Weight 96.2 kg (212 lb) 09/26/2020 8:25 AM CONVEYOR TECHNICIAN Height 162.6 cm (5' 4) 09/26/2020 8:25 AM CONVEYOR TECHNICIAN Body Mass Index 36.39 09/26/2020 8:25 AM CONVEYOR TECHNICIAN Plan of Treatment Health Maintenance Due Date [...] 5 season) 2024 11/21/2020 Influenza Vaccine (#1) 2025 Colon Cancer Screening-FIT Discontinued 10/03/2020 Pneumococcal vaccine <65 Aged Out No longer eligible based on patient's age to complete this topic Procedures Procedure Name Priority Date/Time Associated Diagnosis Comments SCREENING MAMMOGRAM BILATERAL W JOHN Schedule Routine, Read Routine (OP Routine) 12/27/2020 10:47 AM CDT Encounter for screening mammogram for malignant neoplasm of breast STOOL DNA COLOGUARD Routine 10/03/2020 7:30 AM CONVEYOR TECHNICIAN Colon cancer screening from Last 3 Months [...] been subjected to R2/CAD analysis. Nader Guevara INVENTORY CONTROL CLERK IM MAMMO PROCEDURE S Final Result * Stool DNA - Cologuard (10/03/2020 7:30 AM CONVEYOR TECHNICIAN) Stool DNA - Cologuard Negative Not Applicable [facility] (CLIA #:[id number]) Comment: A negative result indicates a low [...] (Priya Garcia al, N Engl J Med 2014;370(14):5143-9086) The normal value (reference range) for this assay is negative. COLOGUARD RE-SCREENING RECOMMENDATION: Periodic routine colorectal cancer screening is an important part of preventive healthcare for asymptomatic persons at average risk for colorectal cancer. Following a negative Cologuard result, the [place] Cancer Society and U.S. Multi-Society Task Force screening guidelines recommend a Cologuard re-screening interval of 3 years. References: [place] [employer] Society (ACS). Colorectal cancer prevention and early detection. [place], [place]: [place] [employer] Society; [updated 2015Jan 06]. https://www.cancer.org/cancer/mrdlc-qpkxur-vgtaqu/kedryiepy-hokobussd-jnzfchz/ac s-rec ommendations.html. Accessed May 15, 2018; Walt DK, Susie CALERO, Janey MahmoodK, Colorectal Cancer Screening: Recommendations for Physicians and Patients from the U.S. Multi-Society Task Force on Colorectal Cancer Screening, Am J Gastroenterology 2017; 112:0643-0313. TEST TYPE: Composite algorithmic analysis of stool [...] interval of every 3 years by the [place] [employer] Society and U.S. Multi-Society Task Force. [...] can be accessed at the following location: www.[place].[employer]/results. Additional description of the Cologuard test process, warnings and precautions can be found at www.cologuardtest.com. Rx only. Stool 10/03/2020 7:30 AM CONVEYOR TECHNICIAN 10/04/2020 9:04 AM CONVEYOR TECHNICIAN Nader Guevara INVENTORY CONTROL CLERK LAB BODY FLUIDS AND STOOLS ORDERABLES Final Result [facility] (CLIA #:[id number]) [address] [place] [address] from Last 3 Months or Most Recently Relevant to Health Maintenance Insurance [facility] ACCESS CHOICE ANTH ACCESS CHOICE Care Teams Global Recruiter Relationship Specialty Start Date End Date Nader Guevara NP PCP - General Family Practice 09/26/20
[2025-05-12 13:32] VITALS: BP 131/85; PULSE 81; RESP 18; TEMP 36.2; O2SAT 97
--- NOTE | 2025-05-12 13:57 | ED.BACK ---
HPI - Back Pain/Injury General Chief Complaint: Back Pain/Injury Stated Complaint: Neck and Upper Back Pain Time Seen by Provider: 05/12/25 13:55 Source: patient, RN notes reviewed and old records reviewed Mode of arrival: ambulatory Limitations: no limitations History of Present Illness HPI Narrative: 55 year old female who presents top the medical center with complaints of 3 day history of lower neck and upper back discomfort which radiates to the left upper shoulder with no new injury. Patient reports that she has chronic neck pain and has had spasms for the past 3 days. Patient reports history of Degenerative Disc Disease and has follow up with surgeon pending. Patient reports that she is planning on flying to [place] on Friday to care for her grandson while her daughter is in the hospital having new baby. Patient reports that she has received physical therapy in past for her neck pain and has been taking Aleve, Tylenol Ibuprofen and using head and ice to her neck without relief.Patient has increased discomfort when she turns her neck to the left. Patient reports no tingling or numbness down her arms or in fingers. MD elicited complaint: other (neck pain) Pertinent past history: prior back pain and other (degenerative disc disease ) Onset (ago): day(s) (3) Pain scale (0-10): 6 Similar Symptoms Previously: Yes Treatments prior to arrival: cold therapy, heat therapy, NSAIDS and acetaminophen Related Data Allergies Allergy/AdvReac Type Severity Reaction Status Date / Time No Known Allergies Allergy Verified 05/12/25 13:47 Review of Systems Review of Systems: CONSTITUTIONAL: Denies fever, chills, or sweats. EYES: Denies visual changes, redness, or discharge. ENT: Denies rhinorrhea, congestion, sore throat, or otalgia. CARDIOVASCULAR: Denies chest pain, palpitations, or edema. RESPIRATORY: Denies cough or dyspnea. GASTROINTESTINAL: Denies abdominal pain, nausea, vomiting, or diarrhea. GENITOURINARY: Denies dysuria or hematuria. SKIN: Denies rash or itching. MUSCULOSKELETAL: Reports lower neck upper back pain with radiation to top of left shoulder, joint pain, or myalgia. NEUROLOGIC: Denies headache, numbness, or weakness. PSYCHIATRIC: Denies anxiety or depression. All systems reviewed & are unremarkable except as noted in HPI and below PMFSH Past Medical History Medical History Left arm pain Depression Surgical History Surgical History H/O LEEP History of colposcopy H/O hernia repair History of endometrial ablation Family History Family History Father Family history of lung cancer Brain cancer Grandparent Carcinoma of colon Mother Family history of cardiovascular disease Other Diabetes mellitus Social History Social History Smoking status: Never smoker Alcohol intake: current Alcohol use details: Socially Substance use: never Substance use type: does not use Do You Feel Safe in your Home?: Yes Current Housing: Decline to Answer Concerned About Future Housing: Decline to Answer Difficulty Paying Gas/Electric Bills: Decline to Answer Difficulty Paying for Meds: Decline to Answer Currently Unemployed: Decline to Answer Education: Decline to Answer Difficulty w/ Childcare or Family Care: Decline to Answer Living arrangements: with family Additional living arrangements comments: Occupation/Education: occupation Additional occupation/education comments: Book keeper Gender identity (if verbalized by the patient): Female Sexual Orientation (if Verbalized by the Patient): Straight or Heterosexual Comments At time of signature, agree with nursing past medical, surgical, social and family history. There is no relevant family history pertinent to the presenting complaint Exam Narrative: GENERAL: Well-appearing, well-nourished, and in some acute distress. HEAD: Normocephalic, atraumatic. EYES: PERRLA and EOMI. ENT: Nares clear, no rhinorrhea or epistaxis. Mucous membranes moist. NECK: Supple.no lymphadenopathy increased pain when turning head to left CHEST: Clear to auscultation. No respiratory distress.SAO2 97% on room air HEART: Regular rate and rhythm. No murmur heard. Normal peripheral pulses. ABDOMEN: Soft, nontender, nondistended, normal active bowel sounds. EXTREMITIES: Normal range of motion. No edema. SKIN: Warm, dry, no rash. NEURO: No focal deficits. Alert and oriented x3. denies any tingling or numbness to fingers Course Course Emergency Course: Patient is aware of diagnosis, understands and agrees to treatment plan.? Anticipatory guidance given.? Patient agrees to follow-up as directed and is aware of reasons to seek care at the emergency department. Portions of this record may have been created with voice recognition software Level of Care: Express Care Visit Vital Signs Vital signs: Vital Signs Temperature 36.2 C L 05/12/25 13:32 Pulse Rate 81 05/12/25 13:32 Respiratory Rate 18 05/12/25 13:32 Blood Pressure 131/85 05/12/25 13:32 Pulse Oximetry 97 05/12/25 13:32 Oxygen Delivery Room Air 05/12/25 13:32 Temperature 36.2 C L 05/12/25 13:32 Pulse Rate 81 05/12/25 13:32 Respiratory Rate 18 05/12/25 13:32 Blood Pressure 131/85 05/12/25 13:32 Pulse Oximetry 97 05/12/25 13:32 Oxygen Delivery Room Air 05/12/25 13:32 Reviewed MDM - Back Pain/Injury Differential Diagnosis Differential diagnosis: Likely other (neck pain, cervical spasms, degenerative disc disease, cervical spasms) Medical Records Attestation: I reviewed the patient's medical records. Critical Care Time Critical Care Time Critical Care Time: No Discharge Plan Discharge Clinical Impression: Neck pain on left side Patient Disposition: Home Condition: Stable Instructions: Neck Pain (ED) Additional Instructions: Ice and heat to the area for 20-30 minutes Gentle stretching exercises Gentle massage Caution with lifting, bending, stooping, twisting Avoid pushing, pulling take muscle relaxants as directed--caution drowsiness and no driving or alcohol Anti-inflammatory medicine as directed--take with food He may take the muscle relaxant and anti-inflammatory at the same time Steroids with food twice daily with food Follow-up with your PCP if not improving in 5-7 days If your symptoms persist, change or worsen significantly before you can contact your personal physician then please, without delay, go to the emergency department for further evaluation. Follow-up with PCP in 7-10 days or sooner if needed Follow up with PCP soon in regards to your blood pressure which is elevated above threshold for referral. Blood pressure above 120/80 may indicate pre-hypertension. Blood pressure today 131/85 May use topical ointment to neck such as Ramin Early with Lidocaine to area Patient Language: Arabic Prescriptions: New prednisone 20 mg tablet 20 mg PO BID Qty: 10 0RF cyclobenzaprine 10 mg tablet 10 mg PO TID PRN (Reason: muscle spasm) Qty: 20 0RF Rx Instructions: no driving while taking this medication No Action fluoxetine 20 mg capsule 20 mg PO DAILY Qty: 90 3RF Follow-up/Referrals: Dejan,Rose Garza ARMED CUSTOM PROTECTION OFFICER [Primary Care Provider, Unknown] Time of Disposition: 14:09 Quality [place] Coma Scale Eyes: Open Verbal: Oriented and Alert Motor: Follows Commands [place] Coma Total Score: 15
== END 2025-05-12 14:14 | disposition home or self-care (01) ==
PROVIDERS: Emergency Provider Registered Nurse; PCP Nurse Practitioner Family
DX: M54.2 Cervicalgia (principal); F32.A Depression, unspecified
CPT/HCPCS: 99213; G0463